=== PATIENT | male | born 1980 ===

== ENCOUNTER 2020-01-05 07:18 | Day surgery (SDC) | payer OTHER ==
[~2020-01-05 07:18] MED LIST: TOPROL XL25 M1 PO
== END 2020-01-05 21:20 | disposition home or self-care (01) ==
LOC: CIR.AMB 07:18
PROVIDERS: ATTEND Orthopaedic Surgery Hand Surgery
DX: S62.396 Other fracture of fifth metacarpal bone, right hand (principal); Z20.828 Contact with and (suspected) exposure to other viral communicable diseases